=== PATIENT | male | born 1960 | race Caucasian/White ===

== ENCOUNTER 2016-09-16 06:25 | Inpatient (IN) | payer OTHER ==
[2016-09-01 09:44] VITALS: BMI 34.0
--- NOTE | 2016-09-01 10:14 | PAT Medication Instructions ---
Service Date Sep 01, 2016. Current Home Medication List Aspirin (Aspirin Ec), 325 MG PO QAM Canagliflozin (Invokana), 1 TAB PO QDD Fish Oil ([place]-3), 1 CAP PO QAM Gabapentin (Neurontin), 300 MG PO TID Glimepiride (Amaryl *), 4 MG PO BID Hydrocodone/Acetaminophen 5MG/325MG ([place] 5MG/325MG), 1 TAB PO BID PRN for Pain Lansoprazole (Prevacid), 30 MG PO BID Metformin Hcl Er (Glucophage Er), 2 TAB PO BID Metoprolol Succinate (Toprol Xl), 50 MG PO QAM Ramipril (Altace *), 5 MG PO QAM Simvastatin (Zocor), 40 MG PO QDD Sitagliptin Phosphate (Januvia), 100 MG PO QAM [Fiber Caps], 2 CAPSULES PO BID Medication Instructions For Your Scheduled Surgery - Hold the following medications 2 weeks prior to surgery: Fish Oil ([place]-3), 1 CAP PO QAM - Hold the following medications 48 hours prior to surgery: Metformin Hcl Er (Glucophage Er), 2 TAB PO BID - Hold the following medications the morning of surgery: Glimepiride (Amaryl *), 4 MG PO BID Ramipril (Altace *), 5 MG PO QAM Sitagliptin Phosphate (Januvia), 100 MG PO QAM [Fiber Caps], 2 CAPSULES PO BID - Take the following medications the morning of surgery with a sip of water OTHERWISE NOTHING TO EAT OR DRINK AFTER MIDNIGHT: Gabapentin (Neurontin), 300 MG PO TID Lansoprazole (Prevacid), 30 MG PO BID Hydrocodone/Acetaminophen 5MG/325MG ([place] 5MG/325MG), 1 TAB PO BID PRN for Pain (may take if needed up to 4 hours prior to surgery ) Aspirin (Aspirin Ec), 325 MG PO QAM Metoprolol Succinate (Toprol Xl), 50 MG PO QAM - Take the following medications as scheduled the night before surgery: Gabapentin (Neurontin), 300 MG PO TID Glimepiride (Amaryl *), 4 MG PO BID Lansoprazole (Prevacid), 30 MG PO BID Hydrocodone/Acetaminophen 5MG/325MG ([place] 5MG/325MG), 1 TAB PO BID PRN for Pain Simvastatin (Zocor), 40 MG PO QD Canagliflozin (Invokana), 1 TAB PO QD [Fiber Caps], 2 CAPSULES PO BID If you have any questions please call us at [phone] or [phone] or [phone]
[2016-09-01 10:36] LABS: URINE APPEARANCE CLEAR (CLEAR); URINE BILIRUBIN NEG (NEG); URINE COLOR YELLOW; URINE NITRITE NEG (NEG); URINE SPECIFIC GRAVITY 1.033 (1.000-1.030); UROBILINOGEN NEG (NEG)
[2016-09-01 10:40] LABS: REVIEW REQ? NO
[2016-09-01 10:41] LABS: MANUAL MICROSCOPIC REQUIRED? NO
--- NOTE | 2016-09-01 10:48 | DIAGNOSTIC IMAGING REPORT ---
CHEST PREADMISSION(PA/LAT) CLINICAL HISTORY: PAT preoperative evaluation COMPARISON STUDY: No previous studies for comparison. FINDINGS: The bones soft tissues and hemidiaphragms are normal. The cardiomediastinal silhouette is normal. The lungs are clear. The pulmonary vasculature is normal. IMPRESSION: Negative chest. Electronically signed by: Nael Brady M.D. 09/01/2016 10:47 AM Dictated Date/Time: 09/01/2016 10:47 AM
[2016-09-16] VITALS (11 sets, daily range): BP systolic 107–146; BP diastolic 73–90; PULSE 67–83; TEMP 36.1–36.6; O2SAT 93–97; BMI 34.0
[~2016-09-16] VITALS: Ht 180.3 cm; Wt 110.2 kg
[~2016-09-16 06:25] MED LIST: ALT5 PO; AMR2 PO; ASPI325T39 PO; CANA1TAB PO; CEFAZOLIN 2000 MG/60 ML D5W IV SCH; FIBER PO; GABA-113 PO; HYDR-5688 PO; LACTATED RINGER'S 1000ML 1,000 ML IV SCH; LANS30CA12 PO; METF500T5 PO; METO-217 PO; OMEG10007 PO; SIMV40TA2 PO; SITA100T3 PO
[2016-09-16] MEDS ORDERED: CANA1TAB3 (07:00)
--- NOTE | 2016-09-16 07:36 | History & Physical Bridge Note ---
H&P Re-Evaluation Bridge Note: I have examined the patient, reviewed the History & Physical and in the interval since the performance of the History & Physical I have noted the following changes of clinical significance: No changes noted
--- NOTE | 2016-09-16 07:37 | History and Physical ---
History & Physical Date Sep 16, 2016. Chief Complaint back and leg pain History of Present Illness The patient is a 56 year old male with complaints of Additional History Hepatic Disease: No Endocrine Disorder: No Kidney Disease: No Hypertension: No Heart Disease: No Bleeding Tendencies: No Infectious Diseases: No Allergies Coded Allergies: No Known Allergies (Verified , 09/16/16) Home Medications Scheduled Aspirin (Aspirin Ec), 325 MG PO QAM Fish Oil ([place]-3), 1 CAP PO QAM Gabapentin (Neurontin), 300 MG PO TID Glimepiride (Amaryl *), 4 MG PO BID Lansoprazole (Prevacid), 30 MG PO BID Metformin Hcl Er (Glucophage Er), 2 TAB PO BID Metoprolol Succinate (Toprol Xl), 50 MG PO QAM Ramipril (Altace *), 5 MG PO QAM Simvastatin (Zocor), 40 MG PO QDD Sitagliptin Phosphate (Januvia), 100 MG PO QAM [Fiber Caps], 2 CAPSULES PO BID Scheduled PRN Hydrocodone/Acetaminophen 5MG/325MG ([place] 5MG/325MG), 1 TAB PO BID PRN for Pain Miscellaneous Medications Canagliflozin (Invokana) Physical Examination Skin: warm/dry, no rash Eyes: normal inspection, EOMI, sclerae normal ENT: normal ENT inspection, pharynx normal Head: normocephalic, atraumatic Neck: supple, no adenopathy, trachea midline Respiratory/Chest: lungs clear, normal breath sounds, no respiratory distress Cardiovascular: regular rate, rhythm, no edema, no murmur Abdomen / GI: normal bowel sounds, non tender Back: normal inspection Extremities: normal inspection, normal range of motion Neurologic/Psych: no motor/sensory deficits, alert, normal reflexes, oriented x 3 Diagnosis lumbar stenosis Plan of Treatment decompression fusion L3-S1
[2016-09-16] MEDS ORDERED: MIDAZOLAM HCL 1 MG/ML 2ML VIAL ONE (07:44)
[2016-09-16] MEDS ORDERED: FENTANYL CITRATE INJ 50 MCG/1 ML 2 ML VIAL ONE ×4 (07:44→09:46)
[2016-09-16] MEDS ORDERED: SODIUM CHLORIDE 0.9% PF 50 ML VIAL ONE (07:47)
[2016-09-16] MEDS ORDERED: BACITRACIN 50000 UNIT VIAL ONE (07:48)
[2016-09-16] MEDS ORDERED: BUPIVACAINE/EPINEPHRINE 0.5% MPF 1:200,000 10 ML VIAL ONE ×2 (07:48→08:11)
[2016-09-16] MEDS ORDERED: HYDROmorphone INJ 2 MG/ML SYR/VIAL ONE ×2 (08:27→10:50)
[2016-09-16] MEDS ORDERED: LABETALOL HCL IV 5 MG/ML 20ML IV PRN (08:30)
[2016-09-16] MEDS ORDERED: ONDANSETRON INJ 2 MG/ML 2 ML VIAL IV PRN ×2 (08:30→10:45)
[2016-09-16] MEDS ORDERED: ATROPINE SULFATE 0.1 MG/ML 5ML SYR IV PRN (08:30)
[2016-09-16] MEDS ORDERED: HYDROmorphone INJ 2 MG/ML SYR/VIAL IV PRN (08:30)
[2016-09-16] MEDS ORDERED: ALBUMIN HUMAN 5% 12.5 GM/250 ML VIAL IV ONE (09:07)
[2016-09-16] MEDS ORDERED: FLOSEAL HEMOSTATIC MATRIX 10ML TOP ONE (10:34)
[2016-09-16] MEDS ORDERED: SODIUM CHLORIDE 0.9% 1000ML 1,000 ML IV SCH (10:44)
[2016-09-16] MEDS ORDERED: ALUMINUM/MAGNESIUM SUSP 30 ML UDC PO PRN (10:45)
[2016-09-16] MEDS ORDERED: DO NOT ADMINISTER PNEUMOCOCCAL VACCINE PRN ×2 (10:45)
[2016-09-16] MEDS ORDERED: ACETAMINOPHEN IV 100 ML IV PRN (10:45)
[2016-09-16] MEDS ORDERED: METOCLOPRAMIDE HCL INJ 5 MG/ML 2 ML VIAL IV PRN (10:45)
[2016-09-16] MEDS ORDERED: NALOXONE HCL 0.4 MG/1 ML VIAL/CARP IV PRN ×2 (10:45)
[2016-09-16] MEDS ORDERED: FAMOTIDINE 20 MG TAB PO PRN (10:45)
[2016-09-16] MEDS ORDERED: DO NOT ADMINISTER FLU VACCINE PRN ×3 (10:45)
[2016-09-16] MEDS ORDERED: PROMETHAZINE HCL INJ 12.5 MG in SODIUM CHLORIDE 0.9% 50ML 50 ML IV PRN (10:45)
[2016-09-16] MEDS ORDERED: LORAZEPAM INJ 0.5 MG in SYRINGE 0.75 ML IV PRN (10:45)
[2016-09-16] MEDS ORDERED: hydrOXYzine HCL 25 MG TAB PO PRN (10:45)
[2016-09-16] MEDS ORDERED: LORAZEPAM 0.5 MG TAB PO PRN (10:45)
[2016-09-16] MEDS ORDERED: SOD PHOSPHATE/SOD BIPHOSPHATE ENEMA 132 ML BTL PR PRN (10:45)
[2016-09-16] MEDS ORDERED: MAGNESIUM HYDROXIDE SUSP 30 ML UDC PO PRN (10:45)
[2016-09-16] MEDS ORDERED: BISACODYL 10 MG SUPP PR PRN (10:45)
--- NOTE | 2016-09-16 10:51 | DIAGNOSTIC IMAGING REPORT ---
LUMBAR SPINE 2 OR 3 VIEW HISTORY:56 yearsMaleL3-S1 DECOMPRESSION/FUSION/INTERBODY WITH ILIAC BOLTS COMPARISON: None available. TECHNIQUE: 3 spot intraoperative fluoroscopic images of the lumbar spine were obtained. Interpretation was conducted after the procedure was completed. 34.2 seconds of fluoroscopy time was utilized. FINDINGS: Posterior interbody tam and screw fixation hardware is present at the L3-S1 levels. Discectomy changes are present at L5-S1. There appears to have been laminectomy at these respective levels as well. IMPRESSION: Status post laminectomy with interbody tam and screw fixation at L3-S1. Discectomy changes at L5-S1. The above report was generated using voice recognition software. It may contain grammatical, syntax or spelling errors. Electronically signed by: Kush Vyas 09/16/2016 10:49 AM Dictated Date/Time: 09/16/2016 10:46 AM
--- NOTE | 2016-09-16 10:54 | [facility] Operative Report ---
Operative Report Operative Date Sep 16, 2016. Pre-Operative Diagnosis Lumbar Stenosis Post-Operative Diagnosis Same Procedure(s) Performed #1 lumbar decompression bilateral medial facetectomy foraminotomy L2 3 L3 4 L4 5 L5-S1. #2 posterior spinal fusion [id number] L4 5 S1. 3 placement of posterior segmental S rotation using or through his rods and screws L3 to S1. 4 interbody fusion L5-S1. 5 placement of peek cage 12 x 26 mm L5-S1. 6 placement of locally harvested morcellized autograft in the posterior lateral gutters. 7 placement of infuse SPONGE commode last graft in the posterior lateral gutters to need bone graft in the interbody space. Surgeon Dr. Nicko Gramajo It Desktop Support Specialist Surgeon(s) Jennifer Benitez PA-C Estimated Blood Loss 850 ML Findings Severe multilevel stenosis Specimens none per surgoen Description of Procedure Patient was met with her K status post progress with the patient resting metacarpal suite and after undergoing successful admission to [facility] was placed in the prone position on the Isaac table W [place] frame. All promises were well padded and the eyes inspected to ensure there is no external pressure on them. This point the lumbar spine was prepped and draped in the normal sterile fashion. Sharp dissection of the assistance of Bovie cautery performed down to and exposing the lamina and transverse processes of L345 S1 levels bilaterally. I then performed a complete laminectomy decompression L5 4 3 partial, laminectomy of L2. A dressing severe lateral recess and foraminal stenosis. Pedicle screws were then placed in L3 4 5 S1 levels bilaterally with assistance of fluoroscopy the purposes were provisionally placed. Through a transforaminal approach on the right a complete discectomy L5 S1 was performed and platelets. The bone in the 12 x 26 Karma peek cage filled with 20 mg in The position. The rods and locked into position bilaterally. A cross-link locked in position. A 15 round BLADIMIR drain inserted. Incision was then closed with 1 Vicryl in the fascia 2-0 Vicryl subcutaneously and Steri-Strips Steri- Strips are dressing placed between the PACU stable condition. I attest to the content of the Intraoperative Record and any orders documented therein. Any exceptions are noted below.
[2016-09-16] MEDS ORDERED: GLYCOPYRROLATE INJ 0.2 MG/ML VIAL ONE (11:07)
[2016-09-16] MEDS ORDERED: ESMOLOL HCL 10 MG/ML 10 ML VIAL ONE (11:07)
[2016-09-16] MEDS ORDERED: METOPROLOL TARTRATE 1 MG/ML VIAL ONE (11:07)
[2016-09-16] MEDS ORDERED: PROPOFOL IV EMULSION 10 MG/ML 20 ML VIAL IV ONE (11:07)
[2016-09-16] MEDS ORDERED: LIDOCAINE HCL 2% 2 ML VIAL (20MG/ML) ONE (11:07)
[2016-09-16] MEDS ORDERED: NEOSTIGMINE METHYLSULFATE 1 MG/ML 10ML VIAL ONE (11:07)
[2016-09-16] MEDS ORDERED: LABETALOL HCL IV 5 MG/ML 20ML IV ONE (11:07)
[2016-09-16] MEDS ORDERED: ONDANSETRON INJ 2 MG/ML 2 ML VIAL ONE (11:07)
[2016-09-16] MEDS ORDERED: ROCURONIUM BROMIDE 10 MG/ML 5 ML VIAL ONE (11:07)
[2016-09-16] MEDS ORDERED: DEXAMETHASONE SOD INJ 4 MG/ML VIAL ONE (11:07)
[2016-09-16] MEDS ORDERED: HYDROmorphone HCL 0.5MG/ML 50 ML CASSETTE ONE (11:09)
[2016-09-16] MEDS ORDERED: PHARMACY GLYCEMIC MGMT CONSULT PRN (11:19)
--- NOTE | 2016-09-16 12:30 | Anesthesiology Progress Note ---
Anesthesia Post Op Note Date & Time Sep 16, 2016 at 12:30 Vital Signs Pain Intensity: 0 Vital Signs Past 12 Hours Date Time Temp Pulse Resp B/P (MAP) Pulse Ox O2 Delivery O2 Flow Rate FiO2 09/16/16 11:35 36.3 73 16 124/74 98 Nasal Cannula 4 09/16/16 11:25 73 16 124/74 98 Nasal Cannula 4 09/16/16 11:15 77 14 119/81 98 Mask 10 09/16/16 11:05 76 14 118/77 98 Mask 10 09/16/16 10:59 36.3 74 14 122/87 97 Mask 10 09/16/16 07:00 36.4 76 16 129/90 93 Room Air Notes Mental Status: alert / awake / arousable, participated in evaluation Pt Amnestic to Procedure: Yes Nausea / Vomiting: adequately controlled Pain: adequately controlled Airway Patency, RR, SpO2: stable & adequate BP & HR: stable & adequate Hydration State: stable & adequate Anesthetic Complications: no major complications apparent
[2016-09-16] MEDS ORDERED: HYDROmorphone INJ 1 MG/ML SYR IV PRN (12:45)
[2016-09-16] MEDS ORDERED: INSULIN GLARGINE SOLOSTAR 100 UNITS/ML 3 ML PEN SC ONE (13:15)
[2016-09-16] MEDS: LACTATED RINGER'S 1000ML 1,000 ML IV SCH ×2 (13:25→18:24)
[2016-09-16] MEDS: GABAPENTIN 300 MG CAP PO SCH ×2 (13:25→21:15)
--- NOTE | 2016-09-16 13:33 | Pharmacy Progress Note ---
Glycemic Control Intl Consult Date of Service Sep 16, 2016. Scope Glycemic Pharmacist consulted by Dr Gramajo on 09/16/16 for glycemic control and to write orders per [facility] inpatient glycemic control protocol. Objective Weight (Kilograms): 110.200 Accuchecks BSG (last 24hrs): Test 09/16/16 07:04 09/16/16 11:07 09/16/16 12:16 Bedside Glucose 174 mg/dl (70-99) 214 mg/dl (70-99) 231 mg/dl (70-99) Recent Pertinent Medications Outpatient Anti-diabetic Regimen: * Invokana 300mg PO QAM * Glimepiride 4mg PO BID * Metformin ER 1000mg PO BID * Januvia 100mg PO QAM * A1c = pending with tomorrow's AM labs Risk Factors for Insulin Resistance: * Steroids: DXM 12mg IV x1 dose pre-op, then DXM 6mg IV q8h x3 doses post-op * Infection: Ancef intra-op * IVF: LR @ 150mL/hr * Recent Surgery: POD#0, lumbar decompression/spinal fusion * Diet: Type 2 diabetic diet Assessment & Plan ASSESSMENT: * Mr Palomino is a diabetic 56yo currently receiving steroids intra-op for lumbar decompression/spinal fusion. * Pt is maintained on oral antidiabetic agents as an outpatient. * Oral agents are not recommended for inpatient use d/t drug interactions, changing PO intake, and difficulty titrating for acute hyper/hypoglycemia. ADA recommends re-initiating outpatient oral agents 1-2 days prior to discharge if/ when appropriate if they were held on admission. * Will hold oral agents for now and utilize SQ basal bolus insulin regimen, which is the recommended regimen for inpatient glycemic control. * Will initiate weight based insulin dosing for insulin jasmyne patient and titrate based on BSG trends. * Insulin regimen initiated aggressively in the setting of steroid-induced hyperglycemia. Will adjust regimen as needed as steroid therapy is completed. * ADA & AACE recommend a goal blood sugar range 140-180 mg/dl for the majority of critically ill & non-critically ill patients. However, more stringent targets may be selected in individual cases. * More stringent goal range selected in this case d/t age/comorbidities/steroid -induced hyperglycemia. PLAN FOR INPATIENT GLYCEMIC CONTROL: * Holding outpatient oral diabetes medications for now * Will consider resuming tomorrow, POD #1 * Basal insulin with LANTUS 30 units SQ x1 dose tonight (stress level: 3) * Tomorrow morning LANTUS: 10 units for BSG < 140mg/dL, 20 units for BSG 140mg/dL or greater * Further dosing pending BSG results during steroid therapy * Correctional Insulin with NOVOLOG per scale ACHS or Q6hrs while NPO * Goal Range: Low 110 mg/dL - High 140 mg/dL * Correction Factor: 15 mg/dL/unit * Nutritional / Prandial insulin per carb ratio of 1 unit per 7 grams CHO consumed anticipate that Novolog parameters will require "loosening" once steroid course has been completed * Please note that the plan above was derived based on current level of insulin resistance and hospital stress. These recommendations are appropriate for inpatient admission only. Plan of care upon discharge will need to be reassessed to avoid potential outpatient hypo/hyperglycemia. Thank you.
[2016-09-16] MEDS: HYDROmorphone HCL 0.5MG/ML 50 ML CASSETTE IV PRN ×2 (15:14→23:19)
[2016-09-16] MEDS: CEFAZOLIN IV 2,000 MG in DEXTROSE 5% 50ML 50 ML IV SCH (16:30)
[2016-09-16] MEDS ORDERED: RXC5 PO (16:44)
--- NOTE | 2016-09-16 16:46 | Discharge Instructions ---
Discharge Instructions Date of Service Sep 16, 2016. Admission Reason for Admission: Lumbar Spinal Stenosis Discharge Discharge Diagnosis / Problem: lumbar stenosis Discharge Goals Goal(s): Improve function Activity Recommendations Activity Limitations: per Instructions/Follow-up section . Instructions / Follow-Up Instructions / Follow-Up ACTIVITY RECOMMENDATIONS: SELF CARE INSTRUCTIONS AFTER THORACIC/LUMBAR FUSIONS 1. You may walk to your tolerance. It is good exercise for your legs and back. Expect some back and intermittent leg aches and pains. 2. You may perform "counter-top" level activities (make a sandwich, kenton with a project, etc.). 3. No bending or lifting of more than 10 pounds or back twisting of any nature (roll like a log when turning in bed). 4. You may ride in a car for 20-30 minutes at a time. No driving until after your first visit with your doctor. 5. Frequent changes of position and restricting sitting to 30 minutes at a time will help limit the amount of back spasms and stiffness you may experience. 6. You may discontinue the use of ambulatory aids (cane, crutches, etc.) once your strength and confidence allow. 7. You may enterprise integration developer the shower and let water strike your incision when you arrive home at least once daily. Do not take a tub bath, sit in a hot tub or go into a swimming pool until after your first recheck in the office. SPECIAL CARE INSTRUCTIONS: VERY IMPORTANT TO READ AND REVIEW A. Your surgical incision has been closed with a cosmetic suture under the skin that will dissolve in about 6 weeks. In 14 days, you can use a pair of clean scissors and cut the suture that is left outside of the skin at the ends of your incision. 1. The small skin tapes can be removed 7 days after surgery if they have not fallen off by that point. 2. You may keep the wound open to air as much as possible to promote healing after post-op day number 5 unless told otherwise by your doctor. 3. If you think the wound looks like it is becoming infected (redness or worsening drainage) and/or you are experiencing fever, chill or worsening back pain and muscle spasms, contact the office so that we may evaluate you as soon as possible. B. Complications are uncommon, but please contact us if you have any signs or symptoms of: 1. wound infection (fever higher than 102.5 degrees F, redness, separation of wound, drainage, or increasing pain from the incision) 2. blood clots in legs (pain, swelling, redness and warmth in legs) 3. urinary tract infection (fever higher than 102.5 degrees F, burning upon urination or increased frequency of urination) 4. nerve problems (inability to walk on your toes or heels, numbness, loss of bowel or bladder control) 5. any other symptoms that concern you C. Please call the office at if you have any concerns or questions about your operation or recovery. D. No smoking! Smoking drastically decreases the chance of a solid fusion. E. Do not take any anti-inflammatory medications (Indocin, Advil, Motrin, Aspirin, Naprosyn, etc.) as these may inhibit the chance of a solid fusion. Tylenol is okay to take for pain. MANAGING PAIN AFTER SPINAL SURGERY 1. Narcotic medication is intended for short-term use and will be provided for surgical pain. Surgical pain usually lasts for a period of 4-6 weeks. Narcotic medication includes Percocet, Vicodin, Darvocet, Tylenol #3 or Lortab. 2. Longer-term pain is more appropriately treated with non-narcotic medication such as Tylenol ES. 3. Muscle spasm is not appropriately treated with narcotics. Muscle relaxers such as Soma, Flexeril or Skelaxin can be used along with Tylenol ES. 4. Remember that we all live with some "aches and pains". This is not unusual or uncommon after an injury or as we get older. a. Back pain is expected and may include muscle spasms for 4 to 6 weeks after surgery. The pain should gradually improve. If the pain worsens for no apparent reason, please contact the office. b. Intermittent leg pain may also be experienced and should not be concerned about unless it worsens for no apparent reason. If so, please contact the office. 5. We will provide appropriate medication within the normal guidelines of their prescribed use. We will also be very cautious and aware of potential abuse and extended duration of patients' medication needs. a. Pain medications are for your comfort and to assist with sleep and rest so that the tissue can heal. They are not provided in order to return to normal activity and should not be used through the day. To do so or worsening pain at night can result from ongoing tissue damage and development of tolerance to the prescribed medicine. 6. Please allow 2-3 days to process refills. Prescriptions will not be mailed but must be picked up at the office. FOLLOW UP VISIT: Keep your scheduled follow-up appointment. Any questions, please call the office at . Current Hospital Diet Patient's current hospital diet: Diabetes Type 2 Diet Discharge Diet Recommended Diet: Regular Diet Procedures Procedures Performed: #1 lumbar decompression bilateral medial facetectomy foraminotomy L2 3 L3 4 L4 5 L5-S1. #2 posterior spinal fusion [id number] L4 5 S1. 3 placement of posterior segmental S rotation using or through his rods and screws L3 to S1. 4 interbody fusion L5-S1. 5 placement of peek cage 12 x 26 mm L5-S1. 6 placement of locally harvested morcellized autograft in the posterior lateral gutters. 7 placement of infuse SPONGE commode last graft in the posterior lateral gutters to need bone graft in the interbody space. Pending Studies Studies pending at discharge: no Medical Emergencies . Who to Call and When: Medical Emergencies: If at any time you feel your situation is an emergency, please call 911 immediately. . Non-Emergent Contact Non-Emergency issues call your: Primary Care Provider . "Provider Documentation" section prepared by Nicko Gramajo. . VTE Core Measure Inpt VTE Proph given/why not?: Ortiz Jules, HIMANSHU's
[2016-09-16] MEDS: DEXAMETHASONE INJ 6 MG in SYRINGE 0 ML IV SCH (18:24)
[2016-09-16] MEDS: SIMVASTATIN 40 MG TAB PO SCH (18:24)
[2016-09-16] MEDS: INSULIN ASPART 100 UNITS/ML 3 ML PEN SC SCH ×2 (18:25→21:20)
[2016-09-16] MEDS ORDERED: GLIMEPIRIDE 2 MG TAB PO SCH (21:00)
[2016-09-16] MEDS: DOCUSATE SODIUM/SENNA 50/8.6MG TAB PO SCH (21:15)
[2016-09-16] MEDS: PANTOprazole SOD 40 MG TAB PO SCH (21:15)
[2016-09-17] MEDS: CEFAZOLIN IV 2,000 MG in DEXTROSE 5% 50ML 50 ML IV SCH (00:01)
[2016-09-17] MEDS: DEXAMETHASONE INJ 6 MG in SYRINGE 0 ML IV SCH ×2 (02:16→09:33)
[2016-09-17 03:19] VITALS: BP 115/71; PULSE 80; TEMP 36.8; O2SAT 94
[2016-09-17] MEDS ORDERED: HYDROmorphone INJ 1 MG/ML SYR IV PRN (06:00)
[2016-09-17] MEDS ORDERED: HYDROmorphone INJ 0.5 MG/0.5 ML SYR IV PRN (06:00)
[2016-09-17] MEDS ORDERED: DC PCA SCH (06:00)
[2016-09-17] MEDS ORDERED: OXYCODONE HCL IR 5 MG TAB (IMMEDIATE RELEASE) PO PRN (06:00)
[2016-09-17] MEDS: LACTATED RINGER'S 1000ML 1,000 ML IV SCH ×2 (06:03)
[2016-09-17 06:04] LABS: COMPLETE YES; HEMATOCRIT 37.5 % (42-52); IG% 0.2 %; LYMPH % 8.4 %; LYMPH ABS # 0.88 K/uL (1.2-3.4); MEAN CELL VOLUME 97.9 fL (80-100); MEAN CORPUSCULAR HEMOGLOBIN 32.4 pg (25-34); MEAN CORPUSCULAR HGB CONC 33.1 g/dl (32-36); MEAN PLATELET VOLUME 9.4 fL (7.4-10.4); MONO % 6.7 %; NEUT % 84.7 %; PLATELET COUNT 180 K/uL (130-400); RED BLOOD COUNT 3.83 M/uL (4.7-6.1); WHITE BLOOD COUNT 10.44 K/uL (4.8-10.8)
[2016-09-17 06:20] LABS: ESTIMATED AVERAGE GLUCOSE 186 mg/dl; HA1C FLAG Normal (Normal)
[2016-09-17 06:29] LABS: BUN/CREATININE RATIO 18.3 (10-20); CALCIUM 8.7 mg/dl (8.5-10.1); CREATININE 0.63 mg/dl (0.60-1.40); POTASSIUM 4.3 mmol/L (3.5-5.1)
[2016-09-17 07:07] VITALS: BP 122/78; PULSE 78; TEMP 36.8; O2SAT 93
[2016-09-17] MEDS ORDERED: NURSING DECISION MEDICATION ORDER SCH (08:00)
[2016-09-17] MEDS ORDERED: INSULIN GLARGINE SOLOSTAR 100 UNITS/ML 3 ML PEN SC ONE (09:00)
[2016-09-17] MEDS ORDERED: SITAGLIPTIN 100 MG TAB PO SCH (09:00)
[2016-09-17] MEDS: INSULIN ASPART 100 UNITS/ML 3 ML PEN SC SCH ×4 (09:30→21:23)
[2016-09-17] MEDS: METOPROLOL SUCC 50MG EXT REL TAB PO SCH (09:32)
[2016-09-17] MEDS: ASPIRIN 325 MG ECTAB PO SCH (09:32)
[2016-09-17] MEDS: PANTOprazole SOD 40 MG TAB PO SCH ×2 (09:32→21:19)
[2016-09-17] MEDS: GABAPENTIN 300 MG CAP PO SCH ×3 (09:32→21:19)
[2016-09-17] MEDS: ENALAPRIL MALEATE 10 MG TAB PO SCH (10:12)
[2016-09-17 11:50] VITALS: BP 144/91; PULSE 81; TEMP 36.8; O2SAT 93
[2016-09-17 13:01] VITALS: Ht 180.3 cm; Wt 110.2 kg
--- NOTE | 2016-09-17 14:41 | Pharmacy Progress Note ---
Glycemic Control Progress Note Date of Service Sep 17, 2016. Scope Glycemic Pharmacist consulted for glycemic control to write orders per [facility] inpatient glycemic control protocol. Objective Accuchecks BSG (last 24hrs): Test 09/16/16 17:02 09/16/16 20:39 09/17/16 05:20 09/17/16 08:00 Bedside Glucose 190 mg/dl (70-99) 221 mg/dl (70-99) 186 mg/dl (70-99) Random Glucose 165 mg/dl (70-99) Test 09/17/16 12:00 Bedside Glucose 256 mg/dl (70-99) HbA1c: Test 09/17/16 05:20 Hemoglobin A1c 8.1 % (4.5-5.6) H Recent Pertinent Medications The patient is currently receiving: * Basal insulin: Lantus 20-30 units every 12 hours based on BSG * Correctional Insulin: Novolog Correction per scale ACHS Goal Range: Low 110 mg/dL - High 140 mg/dL Correction Factor: 15 mg/dL/unit * Prandial insulin: Per carb ratio of 1 unit per 7 grams CHO consumed * Oral Agents: On hold Risk Factors for Insulin Resistance: * Steroids: DXM 12mg IV x1 dose pre-op on 09/16, then DXM 6mg IV q8h x3 doses post-op * Recent Surgery: POD#1, lumbar decompression/spinal fusion * Diet: Type 2 diabetic diet Outpatient Anti-Diabetic Meds * Invokana 300mg PO QAM * Glimepiride 4mg PO BID * Metformin ER 1000mg PO BID * Januvia 100mg PO QAM Assessment & Plan ASSESSMENT: * See progress note from 09/16/16 for more background info, in short: * Pt receiving SQ basal bolus insulin regimen for hyperglycemia secondary to baseline DM, stress from recent surgery and high dose steroids * Last dose of dexamethasone IV administered today @ 1000 * Patient has received 94 units of insulin since surgery * 50 units of basal insulin * 34 units of prandial/correctional insulin * BSGs ranging 165 - 256 mg/dl over the past 24hrs * Changes needed to insulin regimen: * AM Fasting BSG = 186 mg/dl. This is in slightly above goal range for patient based on inpatient targets and co-morbidities. Will continue basal insulin dosed per BSG. I do not anticipate the patient needed basal insulin after 7/7 pm dose. * Post-prandial BSGs are elevated due to steroid induced hyperglycemia. Steroids have the most profound effect on prandial BSGs. Continue aggressive CF/ CR throughout the day, then loosen this evening since effect of steroids will start to vieyra off. PLAN FOR INPATIENT GLYCEMIC CONTROL: * Resume Metformin today with dinner * Will resume the remainder of oral agents 7/8 am * Basal insulin with LANTUS * 0-20 units SQ this evening * 0 for BSG less than 140 mg/dL * 10 units for BSG 140 - 180 mg/dL * 20 units for BSG greater than 180 mg/dL * Correctional Insulin with NOVOLOG per scale ACHS * Goal Range: Low 110 mg/dL - High 140 mg/dL * Correction Factor: 15 mg/dL/unit - loosen to 20 starting with the 2100 dose tonight * Carb ratio: 1 unit per 7g of carb - loosen to 8 starting with the 2100 dose tonight RECOMMENDATIONS FOR DISCHARGE: * * Please note that the plan above was derived based on current level of insulin resistance and hospital stress. These recommendations are appropriate for inpatient admission only. Plan of care upon discharge will need to be reassessed to avoid potential outpatient hypo/hyperglycemia. Thank you.
[2016-09-17 14:53] VITALS: BP 111/73; PULSE 75; TEMP 36.6; O2SAT 95
--- NOTE | 2016-09-17 16:10 | Progress Note ---
Progress Note Date of Service Sep 17, 2016. Progress Note Patient's leg pain is markedly improved. Pain is well controlled. Vital signs are stable. BLADIMIR drain 170 mL today. On physical exam is excellent strength testing is sitting in a chair at bedside. Assessment status post multi-level lumbar decompression fusion. Plan at this time will continue physical therapy advances bowel regimen home this weekend.
[2016-09-17] MEDS: SIMVASTATIN 40 MG TAB PO SCH (18:20)
[2016-09-17] MEDS: METFORMIN HCL 500 MG TABCR PO SCH (18:21)
[2016-09-17] MEDS ORDERED: INSULIN GLARGINE SOLOSTAR 100 UNITS/ML 3 ML PEN SC SCH (21:00)
[2016-09-17] MEDS: DOCUSATE SODIUM/SENNA 50/8.6MG TAB PO SCH (21:19)
[2016-09-17 23:47] VITALS: BP 112/72; PULSE 67; TEMP 36.5; O2SAT 97
[2016-09-18] MEDS: POLYETHYLENE (MIRALAX) 17 GM PACK PO SCH ×2 (05:57→12:42)
[2016-09-18 06:42] VITALS: BP 117/85; PULSE 67; TEMP 36.6; O2SAT 94
[2016-09-18] MEDS: METFORMIN HCL 500 MG TABCR PO SCH ×2 (07:25→17:26)
[2016-09-18] MEDS: ENALAPRIL MALEATE 10 MG TAB PO SCH (07:26)
[2016-09-18] MEDS: ASPIRIN 325 MG ECTAB PO SCH (07:26)
[2016-09-18] MEDS: GABAPENTIN 300 MG CAP PO SCH ×3 (07:27→21:35)
[2016-09-18] MEDS: METOPROLOL SUCC 50MG EXT REL TAB PO SCH (07:27)
[2016-09-18] MEDS: PANTOprazole SOD 40 MG TAB PO SCH ×2 (07:27→21:36)
[2016-09-18] MEDS: INSULIN ASPART 100 UNITS/ML 3 ML PEN SC SCH ×4 (07:33→21:31)
[2016-09-18] MEDS: SITAGLIPTIN 100 MG TAB PO SCH (09:18)
[2016-09-18] MEDS: ACETAMINOPHEN 500 MG TAB PO PRN ×2 (09:28→17:25)
[2016-09-18] MEDS ORDERED: KETOROLAC TROMETHAMINE 30 MG/ML VIAL IV PRN (09:30)
--- NOTE | 2016-09-18 10:05 | Progress Note ---
Progress Note Date of Service Sep 18, 2016. Progress Note Patient is postop day 2. Back pain is controlled. Leg pain markedly improved. By signs are stable BLADIMIR drain decreasing appropriately. On exam he is sitting in chair at bedside as good strength testing appears very comfortable. Assessment status post multilevel lumbar depression fusion replant this time I anticipate discharge home Tuesday.
[2016-09-18 15:19] VITALS: BP 104/69; PULSE 73; TEMP 36.4; O2SAT 95
[2016-09-18] MEDS: GLIMEPIRIDE 2 MG TAB PO SCH (17:25)
[2016-09-18] MEDS: SIMVASTATIN 40 MG TAB PO SCH (17:26)
[2016-09-18] MEDS ORDERED: NURSING DECISION MEDICATION ORDER SCH (17:30)
[2016-09-18] MEDS ORDERED: INSULIN GLARGINE SOLOSTAR 100 UNITS/ML 3 ML PEN SC SCH (21:00)
[2016-09-18] MEDS: DOCUSATE SODIUM/SENNA 50/8.6MG TAB PO SCH (21:36)
[2016-09-18 23:28] VITALS: BP 130/83; PULSE 77; TEMP 36.6; O2SAT 95
[2016-09-19] MEDS: ACETAMINOPHEN 500 MG TAB PO PRN (07:21)
[2016-09-19 07:30] VITALS: BP 125/83; PULSE 79; TEMP 36.7; O2SAT 93
--- NOTE | 2016-09-19 08:09 | Orthopedic Progress Note ---
Orthopedic Progress Note Date of Service Sep 19, 2016. Subjective Post OP Day: 3 Reports: feeling well Additional Notes: Wing is doing well. Right leg pain is improving. Back pain controlled. BLADIMIR drain output 40 mL. He is ambulating 750 ft plus steps in physical therapy yesterday. He has had a bowel movement. No new complaints. Objective calves soft nontender, N/V intact, dressing C/D/I, A&O x3, toes mobile Date Time Temp Pulse Resp B/P (MAP) Pulse Ox O2 Delivery O2 Flow Rate FiO2 09/19/16 07:30 36.7 79 18 125/83 (97) 93 Room Air 09/18/16 23:28 36.6 77 16 130/83 (99) 95 Room Air 09/18/16 19:40 Room Air 09/18/16 15:19 36.4 73 16 104/69 (81) 95 Room Air 09/18/16 15:00 Room Air Assessment & Plan Assessment: Postoperative day 3 lumbar decompression fusion doing well. Inhouse Planning DVT Prophylaxis: TARYNs, HIMANSHUs Additional Notes: Patient will have physical therapy this morning. We will DC BLADIMIR drain and dressing discharge discharge. He will be discharged home later on this afternoon. All questions were answered with the patient in detail. Discharge Planning Discharge Planning: home
--- NOTE | 2016-09-19 08:11 | Discharge Summary ---
Orthopedic Discharge Summary Admission Date/Reason Sep 16, 2016 at 07:52 Lumbar Spinal Stenosis. Discharge Date/Disposition Sep 19, 2016 Home Diagnosis Principal Diagnosis: Lumbar spinal stenosis status post lumbar decompression and instrumented fusion. Procedure(s) Performed Lumbar decompression instrumented fusion Medication Reconciliation Medications Dose Route/Sig Max Daily Dose Days Date Category Dose Instructions Oxycodone HCl 5 Mg Tab 5-10 Mg PO Q4H PRN 30 09/16/16 Rx Invokana (Canagliflozin) 300 Mg Tab 09/16/16 Reported Aspirin Ec (Aspirin) 325 Mg Tab 325 Mg PO QAM 09/01/16 Reported [place]-3 (Fish Oil) 1 Ea Cap 1 Cap PO QAM 09/01/16 Reported [place] 5MG/325MG (Acetaminophen/Hydrocodone Bitart) Tab 1 Tab PO BID PRN 30 09/01/16 Reported PRN PAIN Neurontin (Gabapentin) 300 Mg Cap 300 Mg PO TID 09/01/16 Reported Prevacid (Lansoprazole) 30 Mg Capcr 30 Mg PO BID 09/01/16 Reported Glucophage Er (Metformin HCl) 500 Mg Tab 2 Tab PO BID 90 09/01/16 Reported [Fiber Caps] 2 Capsules PO BID 11/22/11 Reported Amaryl * (Glimepiride) 4 Mg Tab 4 Mg PO BID 06/21/11 Reported Januvia (Sitagliptin Phosphate) 100 Mg Tab 100 Mg PO QAM 06/21/11 Reported Zocor (Simvastatin) 40 Mg Tab 40 Mg PO QDD 06/21/11 Reported Altace * (Ramipril) 5 Mg Cap 5 Mg PO QAM 06/21/11 Reported Toprol Xl (Metoprolol Succinate) 50 Mg Tabcr 50 Mg PO QAM 06/21/11 Reported Admission Physical Exam As per Admitting History & Physical. Hospital Course Patient had an uneventful hospital course. He did well physical therapy. BLADIMIR drain continued to diminish. Pain was controlled. Discharge Instructions Please refer to the electronic Patient Visit Report (Discharge Instructions) for additional information.
[2016-09-19] MEDS: METFORMIN HCL 500 MG TABCR PO SCH (08:27)
[2016-09-19] MEDS: PANTOprazole SOD 40 MG TAB PO SCH (08:27)
[2016-09-19] MEDS: SITAGLIPTIN 100 MG TAB PO SCH (08:28)
[2016-09-19] MEDS: GABAPENTIN 300 MG CAP PO SCH (08:28)
[2016-09-19] MEDS: GLIMEPIRIDE 2 MG TAB PO SCH (08:29)
[2016-09-19] MEDS: METOPROLOL SUCC 50MG EXT REL TAB PO SCH (08:29)
[2016-09-19] MEDS: ENALAPRIL MALEATE 10 MG TAB PO SCH (08:30)
[2016-09-19] MEDS: ASPIRIN 325 MG ECTAB PO SCH (08:31)
[2016-09-19] MEDS: INSULIN ASPART 100 UNITS/ML 3 ML PEN SC SCH (08:36)
[2016-09-19] MEDS ORDERED: INSULIN GLARGINE SOLOSTAR 100 UNITS/ML 3 ML PEN SC SCH (09:30)
[2016-09-19 09:58] VITALS: BP 125/83; PULSE 79; TEMP 36.7; O2SAT 93
== END 2016-09-19 11:12 | disposition home or self-care (01) | DRG 460 ==
LOC: C.ACU 06:25 → C.3E 07:52 → ENRESERV 11:36
PROVIDERS: ADMIT Orthopaedic Surgery Orthopaedic Surgery of the Spine; ATTEND Orthopaedic Surgery Orthopaedic Surgery of the Spine
PROC: 0SG30AJ Fusion of Lumbosacral Joint with Interbody Fusion Device, Posterior Approach, Anterior Column, Open Approach (ICD-10-PCS; principal; 2016-09-16 08:15)
PROC: 3E0U0GB Introduction of Recombinant Bone Morphogenetic Protein into Joints, Open Approach (ICD-10-PCS; principal; 2016-09-16 08:15)
PROC: 0ST40ZZ Resection of Lumbosacral Disc, Open Approach (ICD-10-PCS; principal; 2016-09-16 08:15)
PROC: 0SG3071 Fusion of Lumbosacral Joint with Autologous Tissue Substitute, Posterior Approach, Posterior Column, Open Approach (ICD-10-PCS; principal; 2016-09-16 08:15)
PROC: 0SG1071 Fusion of 2 or more Lumbar Vertebral Joints with Autologous Tissue Substitute, Posterior Approach, Posterior Column, Open Approach (ICD-10-PCS; principal; 2016-09-16 08:15)
PROC: 01NB0ZZ Release Lumbar Nerve, Open Approach (ICD-10-PCS; principal; 2016-09-16 08:15)
DX: M48.06 Spinal stenosis, lumbar region (principal); I25.2 Old myocardial infarction; K21.9 Gastro-esophageal reflux disease without esophagitis; E66.9 Obesity, unspecified; I25.10 Atherosclerotic heart disease of native coronary artery without angina pectoris; M19.90 Unspecified osteoarthritis, unspecified site; E11.9 Type 2 diabetes mellitus without complications; Z79.82 Long term (current) use of aspirin; Z79.84 Long term (current) use of oral hypoglycemic drugs; Z68.33 Body mass index [BMI] 33.0-33.9, adult; Z79.899 Other long term (current) drug therapy; Z79.891 Long term (current) use of opiate analgesic